=== PATIENT | male | born 1965 | race Caucasian/White ===

== ENCOUNTER 2019-04-30 07:09 | Day surgery (SDC) | payer BC ==
[2019-04-30] MEDS ORDERED: FENTAnyl 50 MCG/ML VIAL (09:37)
[2019-04-30] MEDS ORDERED: MIDAZOLAM 1 MG/ML 2 ML INJ ×2 (09:37)
== END 2019-04-30 12:10 | disposition home or self-care (01) ==
LOC: GIL 07:09
DX: Z12.11 Encounter for screening for malignant neoplasm of colon (principal); D12.8 Benign neoplasm of rectum; K57.30 Diverticulosis of large intestine without perforation or abscess without bleeding
CPT/HCPCS: 45380; 88305